=== PATIENT | male | born 2000 | race Hispanic/Latino ===

== ENCOUNTER → 2023-09-30 | Outpatient (CLI) | payer OTHER | LOC: M OUTALCOH 07:30 | PROVIDERS: ATTEND Psychiatry & Neurology Psychiatry | DX: Z03.89 Encounter for observation for other suspected diseases and conditions ruled out (principal) ==

== ENCOUNTER 2023-10-07 13:34 | Outpatient (RCR) | payer OTHER | END 2023-10-11 | LOC: M OUTALCOH 13:34 | PROVIDERS: ATTEND Psychiatry & Neurology Psychiatry | DX: F10.10 Alcohol abuse, uncomplicated (principal) ==